=== PATIENT | female | born 1955 | race Caucasian/White ===

== ENCOUNTER → 2016-07-16 | Outpatient (CLI) | payer BC, MEDICARE ==
[2016-07-16 10:46] LABS: Basophils % (A) 0 %; CH 25.9; CHCM 31.3; Eosinophils # (A) 0.3 k/uL (0-0.7); Eosinophils % (A) 4 %; HCT 38.2 % (34.0-46.0); HDW 3.06; HGB 12.2 gm/dL (11.4-16.0); Hypochromasia Moderate; Luc % (Auto) 3; Lymphocytes # (A) 2.3 k/uL (1.0-4.8); Lymphocytes % (A) 33 %; MCH 26.6 pg (25.0-35.0); MCHC 31.9 g/dL (31.0-37.0); MCV 83.3 fL (80.0-100.0); Mean Platelet Volume 6.8; Monocytes # (A) 0.3 k/uL (0-1.0); Monocytes % (A) 5 %; Neutrophils # (A) 3.9 k/uL (1.3-7.7); Neutrophils % (A) 56 %; RBC 4.58 m/uL (3.80-5.40); RDW 15.8 % (11.5-15.5); WBC 6.9 k/uL (3.8-10.6); WBC (Perox) 7.19
[2016-07-16 10:48] LABS: ALT 35 U/L (9-52); AST 20 U/L (14-36); Alkaline Phosphatase 78 U/L (38-126); Anion Gap 9 mmol/L; Blood Urea Nitrogen 13 mg/dL (7-17); Calcium 9.7 mg/dL (8.4-10.2); Carbon Dioxide 26 mmol/L (22-30); Chloride 107 mmol/L (98-107); Cholesterol 288 mg/dL (<200); Creatine Kinase 74 U/L (30-135); Glucose 117 mg/dL (74-99); HDL Cholesterol 50 mg/dL (40-60); Non-African American GFR(MDRD) >60 (>60 ml/min/1.73 sqM); Potassium 5.7 mmol/L (3.5-5.1); Sodium 142 mmol/L (137-145); Total Bilirubin 0.4 mg/dL (0.2-1.3); Total Protein 7.5 g/dL (6.3-8.2); Triglycerides 358 mg/dL (<150)
[2016-07-16 11:25] LABS: C Reactive Protein 5.3 mg/L (<10.0)
[2016-07-16 12:35] LABS: Erythrocyte Sedimentation Rate 23 mm/hr (0-20)
== END | disposition home or self-care (01) ==
LOC: LABWHC1 10:12
PROVIDERS: ATTEND Internal Medicine Rheumatology
DX: E78.5 Hyperlipidemia, unspecified (principal)
CPT/HCPCS: 36415; 80053; 80061; 82306; 82550; 83970; 85025; 85652; 86140

== ENCOUNTER → 2016-08-04 | Outpatient (CLI) | payer BC, MEDICARE ==
--- NOTE | 2016-08-05 07:01 | US ---
EXAMINATION TYPE: US thyroid st tissue head/neck DATE OF EXAM: 08/04/2016 3:47 PM COMPARISON: MRI cervical spine August 28, 2015 CLINICAL HISTORY: E21.3 hyperparathyroidism. newly diagnosed, no previous issues GLAND SIZE: Right Lobe: 4.6 x 1.7 x 1.5 cm Overall Parenchyma: homogenous Left Lobe: 4.8 x 1.5 x 1.4 cm Overall Parenchyma: homogeneous Isthmus Thickness: 0.4 cm NODULES RIGHT: # of nodules measured on right: 3 1. 0.7 X 0.7 x 0.8 cm hypoechoic solid nodule at the upper pole with well-defined margins. This no dule is wider than tall and shows no intranodular vascularity. Prior size: no previous 2. 0.6 X 0.5 x 0.4 cm hypoechoic solid nodule at the mid pole with well-defined margins. This nodul e is wider than tall and shows intranodular vascularity. Prior size: no previous 3. 0.4 X 0.3 x 0.2 cm hypoechoic cystic nodule at the lateral lower pole with well-defined margins. This nodule is wider than tall and shows no intranodular vascularity. Prior size: no previous LEFT: # of nodules measured on left: 1. 0.2 cm hypoechoic cystic nodule at the posterior upper pole with well-defined margins. This nodu le is wider than tall and shows no intranodular vascularity. Prior size: no previous 2. 0.2 cm hypoechoic cystic nodule at the mid pole with well-defined margins. This nodule is wider t trejo tall and shows no intranodular vascularity. Prior size: no previous ISTHMUS: # of nodules measured in the isthmus: 0 TECHNOLOGIST IMPRESSION: Bilateral neck scanned, no abnormal lymphadenopathy noted. Bilateral thyroi d nodules, scanned the lateral, inferior and posterior border of the neck, no PTAs noted Thyroid gland is overall normal in size and homogeneous in echotexture. There are scattered small nod ules throughout the thyroid identified by technologist bilaterally. No greater than 1 cm solid or cys tic nodules are seen. No suspicious solid lesions outside thyroid bed are identified. IMPRESSION: Scattered small nodules throughout the normal size thyroid, no concerning greater than 1 cm nodules. No suspicious extrathyroid nodules to suggest parathyroid adenoma.
== END | disposition home or self-care (01) ==
LOC: RADUSWWP 15:28
PROVIDERS: ATTEND Family Medicine
DX: E21.3 Hyperparathyroidism, unspecified (principal); E04.2 Nontoxic multinodular goiter
CPT/HCPCS: 76536

== ENCOUNTER → 2016-08-24 | Outpatient (CLI) | payer BC, MEDICARE ==
--- NOTE | 2016-08-25 08:45 | MM ---
Reason for exam: screening (asymptomatic). Last mammogram was performed 3 years and 2 months ago. History: Patient is postmenopausal. Family history of breast cancer in aunt at age 50. Benign US LT VAD breast biopsy of the left breast, July 12, 2013. Reductions of both breasts. Took estrogen for 1 year beginning at age 38. Took progesterone for 1 year beginning at age 38. Physical Findings: A clinical breast exam by your physician is recommended on an annual basis and results should be correlated with mammographic findings. MG Screening Mammo w CAD Bilateral CC and MLO view(s) were taken. Prior study comparison: June 28, 2013, CAD bilateral diagnostic mammogram. The breast tissue is heterogeneously dense. This may lower the sensitivity of mammography. Stable benign calcifications. Focal asymmetry upper central left breast. This finding is changed when compared with previous exams. ASSESSMENT: Incomplete: need additional imaging evaluation, BI-RAD 0 RECOMMENDATION: Special view mammogram of the left breast. If lesion persists on supplemental views, image directed ultrasound is recommended. [facility] will attempt to contact patient to return for supplemental views and ultrasound if indicated.
== END | disposition home or self-care (01) ==
LOC: RADMAMWWP 12:23
PROVIDERS: ATTEND Family Medicine
DX: Z80.3 Family history of malignant neoplasm of breast (principal); R92.2 Inconclusive mammogram

== ENCOUNTER → 2016-08-30 | Outpatient (CLI) | payer BC, MEDICARE ==
--- NOTE | 2016-08-31 07:19 | MM ---
Reason for exam: additional evaluation requested from abnormal screening. Last mammogram was performed less than 1 month ago. History: Patient is postmenopausal. Family history of breast cancer in aunt at age 50. Benign US LT VAD breast biopsy of the left breast, July 12, 2013. Reductions of both breasts. Took estrogen for 1 year beginning at age 38. Took progesterone for 1 year beginning at age 38. Physical Findings: Nurse did not find any significant physical abnormalities on exam. MG Work Up Mamm w CAD LT ML, spot compression MLO, and spot compression CC view(s) were taken of the left breast. Prior study comparison: August 24, 2016, bilateral MG screening mammo w CAD. June 28, 2013, CAD bilateral diagnostic mammogram. The breast tissue is heterogeneously dense. This may lower the sensitivity of mammography. Asymmetric breast tissue in the left breast. These results were verbally communicated with the patient and result sheet given to the patient on 08/30/16. ASSESSMENT: Incomplete: need additional imaging evaluation, BI-RAD 0 RECOMMENDATION: Ultrasound of the left breast.
--- NOTE | 2016-08-31 07:21 | USB ---
Reason for exam: additional evaluation requested from abnormal screening. History: Patient is postmenopausal. Family history of breast cancer in aunt at age 50. Benign US LT VAD breast biopsy of the left breast, July 12, 2013. Reductions of both breasts. Took estrogen for 1 year beginning at age 38. Took progesterone for 1 year beginning at age 38. US Breast Workup Limited LT Left breast ultrasound demonstrates a 0.3 x 0.5 x 0.2cm oval lesion too small to characterize at 4 o'clock and a duct at 5 o'clock. These results were verbally communicated with the patient and result sheet given to the patient on 08/30/16. ASSESSMENT: Benign, BI-RAD 2 RECOMMENDATION: Return to routine screening mammogram schedule for both breasts.
== END ==
LOC: RADMAMWWP 12:46
PROVIDERS: ATTEND Family Medicine
DX: R92.8 Other abnormal and inconclusive findings on diagnostic imaging of breast (principal)
CPT/HCPCS: 76642; G0206

== ENCOUNTER → 2017-12-30 | Outpatient (CLI) | payer MEDICARE ==
[2017-12-30 08:27] LABS: Anisocytosis Slight; Basophils % (A) 1 %; Eosinophils # (A) 0.3 k/uL (0-0.7); Eosinophils % (A) 5 %; HCT 33.8 % (34.0-46.0); HGB 10.4 gm/dL (11.4-16.0); Hypochromasia Marked; Lymphocytes # (A) 1.9 k/uL (1.0-4.8); Lymphocytes % (A) 26 %; MCH 23.5 pg (25.0-35.0); MCHC 30.7 g/dL (31.0-37.0); MCV 76.6 fL (80.0-100.0); Mean Platelet Volume 6.3; Microcytosis Slight; Monocytes # (A) 0.3 k/uL (0-1.0); Monocytes % (A) 4 %; Neutrophils # (A) 4.4 k/uL (1.3-7.7); Neutrophils % (A) 62 %; Platelet Count 287 k/uL (150-450); RBC 4.41 m/uL (3.80-5.40); RDW 16.2 % (11.5-15.5); WBC 7.1 k/uL (3.8-10.6)
[2017-12-30 09:40] LABS: Erythrocyte Sedimentation Rate 15 mm/hr (0-20)
[2017-12-30 09:42] LABS: ALT 37 U/L (9-52); AST 28 U/L (14-36); Blood Urea Nitrogen 10 mg/dL (7-17); C Reactive Protein 7.2 mg/L (<10.0); Cholesterol 241 mg/dL (<200); Glucose 110 mg/dL (74-99); HDL Cholesterol 43 mg/dL (40-60); LDL Cholesterol,Calculated 143 mg/dL (0-99); Triglycerides 274 mg/dL (<150)
== END | disposition home or self-care (01) ==
LOC: LABWHC1 07:59
PROVIDERS: ATTEND Internal Medicine Rheumatology
DX: M25.50 Pain in unspecified joint (principal); M06.4 Inflammatory polyarthropathy; E78.79 Other disorders of bile acid and cholesterol metabolism; Z79.899 Other long term (current) drug therapy
CPT/HCPCS: 36415; 80061; 82565; 82947; 83525; 84450; 84460; 84520; 85025; 85652; 86140

== ENCOUNTER → 2018-08-23 | Outpatient (CLI) | payer MEDICARE ==
--- NOTE | 2018-08-23 16:00 | US ---
EXAMINATION TYPE: US venous doppler duplex LE RT DATE OF EXAM: 08/23/2018 3:01 PM COMPARISON: NONE CLINICAL HISTORY: 63-year-old female R71.9 abnormal COAGULATION PROFILE,R60.0 EDEMA. Right leg pain x 2 months, gotten worse in the past 2 weeks SIDE PERFORMED: Right TECHNIQUE: The lower extremity deep venous system is examined utilizing real time linear array sonog charlie with graded compression, doppler sonography and color-flow sonography. FINDINGS: VESSELS IMAGED: External Iliac Vein (EIV) Common Femoral Vein Deep Femoral Vein Greater Saphenous Vein * Femoral Vein Popliteal Vein Small Saphenous Vein * Proximal Calf Veins (* superficial vessels) Right Leg: Appears negative for DVT IMPRESSION: No evidence for DVT within the right lower extremity imaged from the groin to the upper calf.
== END | disposition home or self-care (01) ==
LOC: RADUSWWP 14:28
PROVIDERS: ATTEND Family Medicine
DX: R60.0 Localized edema (principal); R79.1 Abnormal coagulation profile